=== PATIENT | female | born 1985 | race Caucasian/White ===

== ENCOUNTER 2024-10-05 12:24 | Inpatient (IN) | payer BC ==
[2024-10-05] MEDS ORDERED: Nalbuphine 10 MG/1 ML Vial IVPUSH PRN (13:29)
[2024-10-05] MEDS ORDERED: Ondansetron 4 MG/2 ML SDV IVPUSH PRN (13:29)
[2024-10-05] MEDS ORDERED: Sodium Chloride 0.9% 10 ML Syringe FLUSH PRN (13:29)
[2024-10-05] MEDS ORDERED: Lactated Ringers 1,000 ML IV SCH (13:30)
[2024-10-05] MEDS: Oxytocin 10 Units/1 ML SDV IM ONE (14:05)
[2024-10-05] MEDS: Lidocaine 1% 50 ML MDV INJECT PRN (14:15)
[2024-10-05] MEDS ORDERED: Acetaminophen 325 MG Tab PO PRN (14:50)
[2024-10-05] MEDS ORDERED: Famotidine 20 MG Tab PO PRN (14:50)
[2024-10-05] MEDS ORDERED: Measles, Mumps & Rubella Vaccine 0.5 ML SDV SUBCUT ONE (14:55)
[2024-10-05 15:06] LABS: BASOPHILS PERCENT AUTO 0.2 % (0.0-1.0); EOSINOPHILS PERCENT AUTO 0.1 % (0.0-6.0); HEMATOCRIT 36.4 % (37.0-47.0); HEMOGLOBIN 11.7 gm/dl (12.0-16.0); IMMATURE GRAN PERCENT AUTO 0.6 % (0.0-0.4); LYMPHOCYTES ABSOLUTE AUTO 0.9 K/mm3 (1.0-4.8); LYMPHOCYTES PERCENT AUTO 5.6 % (24.0-44.0); MEAN CORPUSCULAR HEMOGLOBIN 28.3 pg (28.0-32.0); MEAN CORPUSCULAR HGB CONC 32.1 g/dl (32.0-36.0); MEAN CORPUSCULAR VOLUME 88.1 fl (83.0-99.0); MEAN PLATELET VOLUME 9.9 fl (9.4-12.3); MONOCYTES ABSOLUTE AUTO 1.2 K/mm3 (0.0-0.8); MONOCYTES PERCENT AUTO 7.1 % (0.0-8.0); NEUTROPHILS PERCENT AUTO 86.4 % (41.0-71.0); PLATELET COUNT,PLT 214 K/mm3 (150-400); RED BLOOD CELL COUNT 4.13 M/mm3 (4.10-5.30); WHITE BLOOD CELL COUNT,WBC 16.23 K/mm3 (3.9-11.3)
[2024-10-05] MEDS: Witch Hazel Medicated Pads 40/Jar TOP PRN (16:27)
[2024-10-05] MEDS: Benzocaine/Menthol 20%-0.5% Spray 78 GM Cannister TOP PRN (16:28)
[2024-10-05] MEDS: Ibuprofen 800 MG Tab PO SCH (17:21)
[2024-10-05] MEDS ORDERED: Sodium Chloride 0.9% 10 ML Syringe FLUSH SCH (21:00)
[2024-10-06 17:47] VITALS: BP 100/67; PULSE 78
== END 2024-10-06 17:10 | disposition home or self-care (01) | DRG 560 ==
LOC: JD.OB 12:24 → JD.OBCHECK 12:24 → JD.OB 13:29 → OBSVTOIN 14:00 → JD.OB 14:01
PROVIDERS: ADMIT Obstetrics & Gynecology; ATTEND Obstetrics & Gynecology
PROC: 10E0XZZ Delivery of Products of Conception, External Approach (ICD-10-PCS; principal; 2024-10-05)
PROC: 0KQM0ZZ Repair Perineum Muscle, Open Approach (ICD-10-PCS; 2024-10-05)
DX: O42.02 Full-term premature rupture of membranes, onset of labor within 24 hours of rupture (principal); Z37.0 Single live birth; O70.1 Second degree perineal laceration during delivery; O69.81X0 Labor and delivery complicated by cord around neck, without compression, not applicable or unspecified; O76 Abnormality in fetal heart rate and rhythm complicating labor and delivery; Z3A.39 39 weeks gestation of pregnancy; Z28.39 Other underimmunization status
CPT/HCPCS: 36415; 59025; 59409; 85025; 86592; 86850; 86900; 86901; J2590